=== PATIENT | male | born 1940 | race Caucasian/White ===

== ENCOUNTER 2016-12-18 13:26 | Emergency (ER) | payer MEDICARE, BC ==
[2016-12-18 15:23] LABS: Hematocrit 43 % (42-52); Hemoglobin 14.4 g/dl (14.0-18.0); Mean Corpuscular HGB Conc 34 g/dl (31-36); Mean Corpuscular Hemoglobin 32 pg (27-31); Mean Corpuscular Volume 95 fL (80-94); Mean Platelet Volume 7 um3 (7.4-10.4); Red Cell Distribution Width 13 % (10.5-15); White Blood Count 8.1 10^3/ul (3.5-10.8)
[2016-12-18 15:39] LABS: ALT 30 U/L (7-52); AST 315 U/L (13-39); Albumin 4.3 g/dL (3.2-5.2); Alkaline Phosphatase 85 U/L (34-104); Anion Gap 6 mmol/L (2-11); BUN/Creatinine Ratio 17.3 (8-20); Blood Urea Nitrogen 14 mg/dL (6-24); C Reactive Protein < 1.00 mg/L (< 5.00); CO2 Carbon Dioxide 26 mmol/L (22-32); Calcium 8.9 mg/dL (8.6-10.3); Chloride 102 mmol/L (101-111); EGFR African American 119.5 (>60); EGFR Non-African American 92.9 (>60); Globulin 2.2 g/dL (2-4); Glucose 92 mg/dL (70-100); Lipase 26 U/L (11.0-82.0); Sodium 134 mmol/L (133-145); Total Protein 6.5 g/dL (6.4-8.9)
[2016-12-18] MEDS ORDERED: Iohexol 300* (CONTRAST) 10 ML SDV IV ONE (18:04)
--- NOTE | 2016-12-18 19:23 | RAD ---
HISTORY: Abdominal pain COMPARISONS: Similar examination dated June 15, 2015 TECHNIQUE: Multiple transverse and longitudinal ultrasound images were obtained of the right upper quadrant. FINDINGS: LIVER: The liver is normal in dimensions and echogenicity. Normal hepatic and portal venous blood flow is duplicated with color flow imaging. There is no gross intrahepatic biliary duct dilatation. GALLBLADDER AND EXTRAHEPATIC BILIARY DUCT: There are innumerable echogenic and shadowing stones filling much of the gallbladder lumen. There is no pericholecystic fluid or gallbladder wall thickening. The common bile duct measures a maximum diameter of up to 7 mm. PANCREAS: The portions of the pancreas not obscured by bowel gas are normal in appearance. RIGHT KIDNEY: The right kidney is normal in size, morphology and echogenicity. IMPRESSION: AGAIN SEEN IS CHOLELITHIASIS WITH A TOP NORMAL COMMON BILE DUCT, THOUGH NARROWER THAN MEASURED ON THE JUNE 15, 2015 ULTRASOUND. IF THERE IS HIGH CLINICAL SUSPICION FOR BILIARY OBSTRUCTION PHYSIOLOGIC CHARACTERIZATION COULD BE MADE WITH A HIDA SCAN.
--- NOTE | 2016-12-18 19:57 | RAD ---
CLINICAL HISTORY: Left lower quadrant pain COMPARISON: Same day ultrasound of the gallbladder and CT of the pelvis dated December 21, 2008 TECHNIQUE: Contrast enhanced CT examination of the abdomen and pelvis from the lung bases through the initial tuberosities. The patient received 97 mL Omnipaque 300 intravenously prior to imaging.The patient received oral contrast as well prior to imaging. FINDINGS: VISUALIZED LUNG BASES: There are hypoventilatory changes at the bilateral dependent lungs. The lungs are otherwise grossly clear. ABDOMEN AND PELVIS: The liver, spleen, pancreas and adrenal glands are grossly normal in appearance. The gallbladder is normal. The kidneys are normal in appearance without focal mass, calcification or signs of hydronephrosis. Oral contrast has progressed as far as the distal small bowel. The small and large bowel are not distended. The patient's normal appendix is identified in the right lower quadrant with gas in the lumen (image [id number]). There is no gross retroperitoneal or mesenteric lymphadenopathy. The pelvic viscera is normal in appearance. The moderately calcified abdominal aorta and iliac arteries are normal in course and diameter. Degenerative changes include multilevel loss of intervertebral disc height involving the lower thoracic and lumbar spine.There are no sinister bone lesions. IMPRESSION: 1. No acute inflammatory change of the gastrointestinal tract. 2. Chronic and degenerative changes described in the body the report unlikely to be directly related to the patient's current presentation.
--- NOTE | 2016-12-18 20:32 | ED ---
Mike Anguiano Rebecca, scribed for Cristy Marcano MD on 12/18/16 at 1653 . Abdominal Pain/Male - HPI Summary HPI Summary: Pt is a 76 y/o M who presents to ED c/o RUQ pain without radiation. Sx began at 0900 and lasted approximately 2 hours. Initially, pain was severe, ranked 8/10 though pain is now resolved. Sx aggravated by nothing, alleviated by spontaneous resolution, unchanged by Pepto Bismol and deep breaths. Denies calf tenderness. Preceding onset of sx, pt had meat pie and granola for breakfast. Prior similar episode 2 weeks ago during which the pain was alleviated by Pepto bismol. No recent travel. No PMHx DVT. - History of Current Complaint Chief Complaint: EDAbdPain Stated Complaint: ABD PAIN Time Seen by Provider: 12/18/16 16:43 Hx Obtained From: Patient Onset/Duration: Lasting Hours - 2 hours, Resolved Timing: Intermittent, Lasting Hours - 1 episode lasting 2 hours Severity Initially: Severe - 8/10 Severity Currently: None Pain Intensity: 0 Pain Scale Used: 0-10 Numeric Location: Discrete At: RUQ Radiates: No Aggravating Factor(s): Nothing Alleviating Factor(s): Spontaneous Resolution Associated Signs And Symptoms: Positive: Negative - Allergies/Home Medications Allergies/Adverse Reactions: Allergies Allergy/AdvReac Type Severity Reaction Status Date / Time Amoxicillin [From Augmentin] Allergy Unknown Verified 06/15/15 15:45 Reaction Details Clavulanic Acid Allergy Unknown Verified 06/15/15 15:45 [From Augmentin] Reaction Details PMH/Surg Hx/FS Hx/Imm Hx Endocrine/Hematology History: Denies: Hx Anticoagulant Therapy, Hx Diabetes Cardiovascular History: Denies: Hx Aneurysm, Hx Angina, Hx Angioplasty, Hx Atrial Fibrillation, Hx Auto Implanted Cardiovert Defib, Hx Cardiac Arrest, Hx Cardiomegaly, Hx Congenital Heart Disease, Hx Congestive Heart Failure, Hx Coronary Artery Disease, Hx Deep Vein Thrombosis, Hx Embolism, Hx Hypercholesterolemia, Hx Hypotension, Hx Hypertension, Hx Myocardial Infarction, Hx Pacemaker/ICD, Hx Peripheral Vascular Disease, Hx Rheumatic Fever, Hx Syncope, Hx Valvular Heart Disease, Other Cardiovascular Problems/Disorders Respiratory History: Denies: Hx Asthma, Hx Bronchopulmonary Dysplasia, Hx Chronic Bronchitis, Hx Chronic Obstructive Pulmonary Disease (COPD), Hx Cystic Fibrosis, Hx Lung Cancer , Hx Pleural Effusion, Hx Pneumonia, Hx Pulmonary Edema, Hx Pulmonary Embolism, Hx Seasonal Allergies, Hx Sleep Apnea, Other Respiratory Problems/Disorders GI History: Denies: Hx Cirrhosis, Hx Gall Bladder Disease, Hx Gastroesophageal Reflux Disease, Hx Gastrointestinal Bleed History: Denies: Hx Kidney Stones, Hx Renal Disease Musculoskeletal History: Reports: Hx Back Problems - back stiffness/strain ocassionally Neurological History: Reports: Other Neuro Impairments/Disorders - Hx Parkinson' s Denies: Hx Headaches, Hx Peripheral Neuropathy - Immunization History Date of Tetanus Vaccine: Unk Date of Influenza Vaccine: Fall 2014 Infectious Disease History: Denies: Traveled Outside the [place] in Last 30 Days - Family History Known Family History: Positive: Cardiac Disease - Social History Lives: With Family Alcohol Use: Daily Alcohol Amount: 1-3 drinks/beer/wine Hx Substance Use: No Substance Use Type: Reports: None Hx Tobacco Use: No Smoking Status (MU): Never Smoked Tobacco Have You Smoked in the Last Year: No Review of Systems Positive: Abdominal Pain - RUQ without radiation - resolved Positive: Other - Denies calf tenderness All Other Systems Reviewed And Are Negative: Yes Physical Exam - Summary Physical Exam Summary: General: Well appearing, no pain distress Skin: Warm, Skin Color Reflects Adequate Perfusion, Dry Eyes: EOMI, ANA ENT: Pharynx normal, TMs normal Neck: Supple, nontender Respiratory: CTA, breath sounds present, no rhonchi, no wheezes, no rales Cardiovascular: RRR, no murmur, no rub, no gallop Abdomen: Soft, RUQ tenderness, Non-distended, no guarding, no rebound Bowel: Present Musculoskeletal: DEXTER, No edema Neuro: Sensory/motor intact, A&Ox3, CN intact 2-12 Psych: Affect/mood appropriate Triage Information Reviewed: Yes Vital Signs On Initial Exam: Initial Vitals Temp Pulse Resp BP Pulse Ox 97.9 F 104 18 178/74 99 12/18/16 14:08 12/18/16 14:08 12/18/16 14:08 12/18/16 14:08 12/18/16 14:08 Vital Signs Reviewed: Yes Diagnostics - Vital Signs Vital Signs Temp Pulse Resp BP Pulse Ox 12/18/16 15:50 98.2 F 52 14 119/65 100 12/18/16 14:08 97.9 F 104 18 178/74 99 - Laboratory Lab Results: Lab Results 12/18/16 12/18/16 12/18/16 Range/Units 15:05 15:05 15:05 WBC 8.1 (3.5-10.8) 10^3/ul RBC 4.50 (4.0-5.4) 10^6/ul Hgb 14.4 (14.0-18.0) g/dl Hct 43 (42-52) % MCV 95 H (80-94) fL MCH 32 H (27-31) pg MCHC 34 (31-36) g/dl RDW 13 (10.5-15) % Plt Count 180 (150-450) 10^3/ul MPV 7 L (7.4-10.4) um3 Neut % (Auto) 77.3 (38-83) % Lymph % (Auto) 14.9 L (25-47) % [place] % (Auto) 5.3 (1-9) % Eos % (Auto) 1.5 (0-6) % Baso % (Auto) 1.0 (0-2) % Absolute Neuts (auto) 6.3 (1.5-7.7) 10^3/ul Absolute Lymphs (auto) 1.2 (1.0-4.8) 10^3/ul Absolute Monos (auto) 0.4 (0-0.8) 10^3/ul Absolute Eos (auto) 0.1 (0-0.6) 10^3/ul Absolute Basos (auto) 0.1 (0-0.2) 10^3/ul Absolute Nucleated RBC 0 10^3/ul Nucleated RBC % 0.1 Sodium 134 (133-145) mmol/L Potassium 4.0 (3.5-5.0) mmol/L Chloride 102 (101-111) mmol/L Carbon Dioxide 26 (22-32) mmol/L Anion Gap 6 (2-11) mmol/L BUN 14 (6-24) mg/dL Creatinine 0.81 (0.67-1.17) mg/dL Est GFR ( Amer) 119.5 (>60) Est GFR (Non-Af Amer) 92.9 (>60) BUN/Creatinine Ratio 17.3 (8-20) Glucose 92 (70-100) mg/dL Lactic Acid 0.6 (0.5-2.0) mmol/L Calcium 8.9 (8.6-10.3) mg/dL Total Bilirubin 1.00 (0.2-1.0) mg/dL AST 315 H (13-39) U/L ALT 30 (7-52) U/L Alkaline Phosphatase 85 (34-104) U/L C-Reactive Protein < 1.00 (< 5.00) mg/L Total Protein 6.5 (6.4-8.9) g/dL Albumin 4.3 (3.2-5.2) g/dL Globulin 2.2 (2-4) g/dL Albumin/Globulin Ratio 2.0 (1-3) Lipase 26 (11.0-82.0) U/L Result Diagrams: 12/18/16 15:05 12/18/16 15:05 Lab Statement: Any lab studies that have been ordered have been reviewed, and results considered in the medical decision making process. - CT Abd/Pel CT CT Interpretation: No Acute Changes - 1. No acute inflammatory change of the gastrointestinal tract. 2. Chronic and degenerative changes described in the body the report unlikely to be directly related to the patient's current presentation. CT Interpretation Completed By: Radiologist - Ultrasound No standard instances Ultrasound Interpretation: Positive (See Comments) - GALLBLADDER US: AGAIN SEEN IS CHOLELITHIASIS WITH A TOP NORMAL COMMON BILE DUCT, THOUGH NARROWER THAN MEASURED ON THE JUNE 15, 2015 ULTRASOUND. IF THERE IS HIGH CLINICAL SUSPICION FOR BILIARY OBSTRUCTION PHYSIOLOGIC CHARACTERIZATION COULD BE MADE WITH A HIDA SCAN. Ultrasound Interpretation Completed By: Radiologist Re-Evaluation - Re-Evaluation First Eval Re-Evaluation Time: 20:16 Change: Improved Comment: Discussed CT and US reuslts with the pt and plan to D/C. Abdominal Pain Fem Course/Dx - Course Course Of Treatment: 76 yo male with resolved ruq pain. Labs essentially normal , ct normal, u/s shows gallstones with cbd of 7mm long discussion with pt and about avoiding fat and getting an appt with surgery Assessment/Plan: Elevated BP noted, advised to f/u with PCP. - Diagnoses Provider Diagnoses: Gallbladder disease Discharge - Discharge Plan Condition: Stable Disposition: HOME Prescriptions: HYDROcodone/ACETAMIN 5-325 MG* [[place] 5-325 TAB*] 1 tab PO Q8H PRN #9 tab MDD 3 PRN Reason: Pain Patient Education Materials: Cholecystitis (ED) Forms: *Gen. Provider Communication Referrals: Landon Blas MD [Primary Care Provider] - 3 Days The documentation as recorded by the Mike membreno Rebecca accurately reflects the service I personally performed and the decisions made by me, Cristy Marcano MD.
[2016-12-18 20:46] VITALS: BP 145/73
== END 2016-12-18 20:49 | disposition home or self-care (01) ==
LOC: ED 13:26
DX: K82.9 Disease of gallbladder, unspecified (principal); R10.11 Right upper quadrant pain
CPT/HCPCS: 36415; 74177; 76705; 80053; 83605; 83690; 85025; 86140; 99282; Q9967

== ENCOUNTER 2016-12-29 10:47 | Day surgery (SDC) | payer MEDICARE, BC ==
[~2016-12-29 10:47] MED LIST: Buffered Lidocaine 0.9% SYRIN* 5 ML/SYR SYRINGE INTRADERM ONE; Famotidine TAB* 20 MG PO ONE; Ibuprofen TAB* 400 MG PO ONE
[2016-12-29] MEDS ORDERED: Famotidine TAB* 20 MG ONE (10:57)
[2016-12-29] MEDS ORDERED: Ibuprofen TAB* 400 MG ONE (10:57)
[2016-12-29] MEDS ORDERED: ceFOXitin 2 GM IVPREMIX* 2 GM/50 ML BAG ONE (10:58)
[2016-12-29] MEDS ORDERED: Metoclopramide TAB* 10 MG ONE (10:58)
[2016-12-29] MEDS ORDERED: Buffered Lidocaine 0.9% SYRIN* 5 ML/SYR SYRINGE ONE (10:58)
[2016-12-29] MEDS: Metoclopramide TAB* 10 MG PO ONE (11:05)
[2016-12-29] MEDS ORDERED: Bupivacaine 0.5% SDV PF* 30 ML VIAL ONE (14:06)
[2016-12-29] MEDS ORDERED: Bupivacaine 0.25% SDV* 30 ML ONE (14:07)
[2016-12-29] MEDS ORDERED: fentaNYL* 50 MCG/ML 2 ML VIAL (100 MCG VIAL) ONE (14:20)
[2016-12-29] MEDS ORDERED: Atracurium* 10 MG/ML 10 ML VIAL ONE (14:21)
[2016-12-29] MEDS ORDERED: Atropine 1MG/ML INJ* 1 ML VIAL ONE (15:16)
[2016-12-29] MEDS ORDERED: Propofol* 10 MG/ML 20 ML BTL IV PUSH ONE (15:31)
[2016-12-29] MEDS ORDERED: Lidocaine 2% PF * 5 ML VIAL ONE (15:31)
[2016-12-29] MEDS ORDERED: EPHEDrine (Pressors)* 50 MG/ML VIAL ONE (15:31)
[2016-12-29] MEDS ORDERED: oxyCODONE/Acetamin 5/325 MG* TAB PO PRN (15:42)
[2016-12-29] MEDS ORDERED: oxyCODONE/Acetamin 5/325 MG* TAB ONE (16:58)
[2016-12-29 17:02] VITALS: BP 166/71
--- NOTE | 2016-12-30 04:36 | OP ---
CC: Landon Blas MD * DATE OF OPERATION: 12/29/16 - [facility] DATE OF : 42 SURGEON: Chi Edmond MD [employer]ET[employer] MANAGER: JACOB Sharma ANESTHESIOLOGIST: Gustavo Crane MD ANESTHESIA: General endotracheal. PRE-OP DIAGNOSIS: Symptomatic cholelithiasis. POST-OP DIAGNOSIS: Symptomatic cholelithiasis. OPERATIVE PROCEDURE: Laparoscopic cholecystectomy. ESTIMATED BLOOD LOSS: Minimal. IV FLUIDS: Crystalloids. SPECIMEN: Gallbladder. DRAINS: None. COMPLICATIONS: None. COUNTS: Instrument, needle, and sponge counts were correct. DESCRIPTION OF PROCEDURE: The patient was brought to the operating room and placed on the table supine. Sequential compression devices were placed on both lower extremities. General anesthesia was administered. The abdomen was prepped and draped in usual sterile fashion. He received appropriate intravenous antibiotics. Local anesthetic was infiltrated into the skin and soft tissue prior to making each incision. Entry into the abdomen was through a transumbilical vertical incision using an open technique. After accessing the peritoneal cavity, a 5- mm trocar was placed and carbon dioxide was insufflated to a pressure of 15 mmHg. Under direct visualization, additional trocars were placed including a 12 -mm trocar in the subxiphoid position and two 5-mm trocars in the right upper quadrant through previous scar. The gallbladder was inspected. There appeared to be some chronic inflammatory changes, no acute inflammation. The gallbladder fundus was retracted superiorly and the infundibulum was retracted laterally and inferiorly. The gallbladder seemed to be folded upon itself, had a long cystic duct. The cystic artery was easily identified and branching occurred at the junction of the cystic duct and infundibulum. The peritoneum investing the gallbladder was incised both medially and laterally. The gallbladder was dissected free to obtain a critical view. The cystic artery was clipped, divided clipping the anterior and posterior branches separately. The cystic duct was dissected out, clipped and divided. The gallbladder was freed from attachments to the liver using the cautery and staying in an avascular plane. Once the gallbladder was freed, it was placed into an endoscopic retrieval bag and retrieved through the subxiphoid port site. There are numerous gallstones noted in the gallbladder. Inspection revealed the hemostasis to be excellent. Clips were intact. The ports were withdrawn under direct visualization, carbon dioxide was released. The umbilicus was closed with 0 Polysorb to approximate the fascia. The skin incisions were closed with 4-0 Monocryl in a subcuticular fashion. Steri- Strips were applied. The patient tolerated the procedure well. He was extubated and transferred to recovery room in a stable condition. [id number]/[id number] #: [id number] MTDD
== END 2016-12-29 17:21 | disposition home or self-care (01) ==
LOC: OR 10:47
PROVIDERS: ATTEND Surgery
DX: K80.10 Calculus of gallbladder with chronic cholecystitis without obstruction (principal); F41.9 Anxiety disorder, unspecified; N52.9 Male erectile dysfunction, unspecified; J30.2 Other seasonal allergic rhinitis; G20 Parkinson's disease; G47.00 Insomnia, unspecified; Z88.1 Allergy status to other antibiotic agents
CPT/HCPCS: 88304; A9270-GY; J0461; J0694; J2704; J3010